=== PATIENT | male | born 1980 | race Caucasian/White ===

== ENCOUNTER 2020-05-16 18:42 | Emergency (ER) | payer OTHER, SELFPAY ==
[2020-05-16 19:21] VITALS: BP 143/94; PULSE 100; RESP 16; TEMP 37.1; O2SAT 96; BMI 37.3
--- NOTE | 2020-05-16 19:56 | ED_ITS ---
HPI - Eye Problem General Chief complaint: Eye Problems Stated complaint: eye pain Time Seen by Provider: 05/16/20 19:23 Source: patient Mode of arrival: ambulatory Limitations: no limitations History of Present Illness HPI Narrative: 39yoM c PMHx of HTN, DM and HLD presenting to the ED c c/o b/l graudual eye throbbing pain sensation and redness to b/l eyes that started on initially with the right eye now is extending to the left eye. Reports his vision seems to be the same. Denies any trauma. Denies any other symptoms complaints or concerns at this time. Related Data Previous Rx's Medication Instructions Recorded timolol 1 drp OPHTHALMIC (EYE) BID 30 Days 05/16/20 #5 ml Allergies Allergy/AdvReac Type Severity Reaction Status Date / Time acetaminophen [ACETAMINOPHEN] Allergy Unknown ITCHING Verified 05/16/20 19:21 quetiapine [From Seroquel] AdvReac Nightmare Verified 05/16/20 19:20 Review of Systems Review of Systems: Constitutional : No Fever, No Chills ENT/Mouth : No Ear Pain, No Nasal Congestion, No sore throat Eyes: + Eye Pain, + Redness, No Foreign Body, No Discharge, No Vision Changes, No Swelling Cardiovascular : No Chest Pain, No SOB Respiratory : No Cough, No Sputum, No Wheezing, No Smoke Exposure, No Dyspnea Musculoskeletal : No joint pain, No Myalgias, No Joint Swelling Skin : No Skin Lesions, No rash Neuro : No Weakness, No Numbness, No Paresthesias, No Loss of Consciousness, No Dizziness, No Headache Psych : No Anxiety/Panic, No Depression, No SI/HI/AH/VH, No Social Issues, Heme/Lymph: No Lymphadenopathy Yes all other systems are reviewed and are negative PENDING SALE TO [facility] Past Medical History Attestation statement: The following information was validated with the patient. Medical History Diabetes High cholesterol HTN (hypertension) Surgical History History of nasal surgery Hx of appendectomy Social History Social History Smoking Status: Former smoker Use of substances other than those prescribed or required for medical reasons: No Advance Directives: No Physical Exam Vital Signs: Vital Signs: Vital Signs Temp Pulse Resp BP Pulse Ox 05/16/20 19:21 98.7 F 100 16 143/94 H 96 Body Mass Index 37.3 vital signs have been reviewed as normal and appeared to be correct. Blood pressure normal. Heart rate normal. Respiration rate normal. Temperature normal. Oxygen saturation normal. Appearance: Alert. Oriented X3. No acute distress. Head: Normal external exam. Normocephalic. Atraumatic. No Marr signs noted. No raccoon eyes noted Eyes: PERRLA. EOMI. Subconjunctival hemorrhage noted to right conjunctiva. Cornea is normal. Funduscopic exam within normal limits. Sclera normal. Eyelids normal. No papilledema noted. Anterior chamber normal. No photophobia noted. Pressure to right eye is 28. Pressure to left eye is 21. Visual acuity to right eye 20/30. Visual acuity to left eye 20/25. ENT: EAC normal. TM's Normal. Pharynx normal. Uvula midline. Moist mucous membranes. Neck: Normal inspection. Neck supple. FROM. No adenopathy. Thyroid Normal. No meningeal signs. No neck mass noted. CVS: Normal heart rate and rhythm. Heart sound normal. No murmurs noted. Pulses normal throughout. Respiratory: No respiratory distress. Painless inspiration. Breath sounds normal. Back: Full range of motion noted. Skin: Skin warm and dry. Normal skin color. Normal skin turgor. No rashes/lesions/lacerations noted. Extremities: No lower extremity edema. Extremities exhibit normal range of motion. Extremities nontender. Neuro: Oriented X 3. No motor deficit. No sensory deficit. Reflexes normal. Course Course Course Narrative: 39yoM c PMHx of HTN, DM and HLD presenting to the ED c c/o b/l graudual eye throbbing pain sensation and redness to b/l eyes that started on initially with the right eye now is extending to the left eye. Reports his vision seems to be the same. Denies any trauma. Denies any other symptoms complaints or concerns at this time. - on exam visual acuity to right eye is 20/30. Left eye visual acuity 20/25. Pressure to Right eye 28. Pressure to left eye 21. Funduscopic exam within normal limits. - will DC home on timolol for open angle glaucoma and referral to Dr. Reynoso within the next 24 hours to follow-up instructions to return if any new or worsening symptoms. Patient understands agrees with this plan. Discharge Plan Discharge Clinical Impression: Subconjunctival hemorrhage Qualifiers: Laterality: right Qualified Code(s): H11.31 - Conjunctival hemorrhage, right eye Glaucoma Qualifiers: Glaucoma type: open-angle Open angle glaucoma type: unspecified type Patient Disposition: Home, Self-Care Instructions: Subconjunctival Hemorrhage (ED), Glaucoma (ED) Prescriptions: New timolol 0.25 % drops 1 drp ophthalmic (eye) BID 30 Days Qty: 5 RF: 0 Referrals: Ritesh Reynoso [Physician] - 1 day (Call tomorrow to make an appointment as soon as possible) Stand Alone Forms: Work/School Release Print Language: Pashto
== END 2020-05-16 20:25 | disposition home or self-care (01) ==
PROVIDERS: Emergency Provider Internal Medicine; PCP Internal Medicine
DX: H11.31 Conjunctival hemorrhage, right eye (principal); I10 Essential (primary) hypertension; E11.9 Type 2 diabetes mellitus without complications; Z87.891 Personal history of nicotine dependence
CPT/HCPCS: 99283

== ENCOUNTER 2024-12-17 22:23 | Emergency (ER) | payer OTHER, SELFPAY ==
--- NOTE | ~2024-12-17 | XR_ITS ---
CLINICAL HISTORY: injury Exam: AP, lateral, and mortise views of the right ankle. Comparison: None. Findings: Bony alignment is anatomic. No fracture. No joint effusion. Ankle mortise is intact. Impression: No fracture. This document has been electronically signed by: Doyle Desouza MD on 12/17/2024 23:22:30
[2024-12-17 22:30] VITALS: BP 151/88; PULSE 93; RESP 20; TEMP 36.3; O2SAT 98; BMI 37.6
--- NOTE | 2024-12-18 02:22 | ED_ITS ---
HPI - Extremity Injury (Lower) General Chief Complaint: Extremity Injury, Lower Stated Complaint: R lower leg injury Time Seen by Provider: 12/18/24 01:58 Source: patient Mode of arrival: ambulatory Limitations: no limitations History of Present Illness ED Provider: Dr. Agnieszka Tavarez HPI Narrative: Patient comes in the emergency room complaining of pain in the right jeffrey. Patient states that earlier today he was loading stuff into his truck, kicked an item and now he has a bruise in addition. Patient denies blood thinners, patient denies spraining his ankle. Patient able to bear weight. Patient states that it is throbbing. Patient did not take any medication prior to arrival. Related Data Previous Rx's ?Medication ?Instructions ?Recorded timolol 0.25 % eye drops 1 drp ophthalmic (eye) BID 05/16/20 glaucoma 30 days #5 mL ibuprofen 600 mg tablet 600 mg PO Q8H PRN fever or pain 12/18/24 #20 tabs Allergies Allergy/AdvReac Type Severity Reaction Status Date / Time acetaminophen [ACETAMINOPHEN] Allergy Unknown ITCHING Verified 12/17/24 22:32 quetiapine [From Seroquel] AdvReac Nightmare Verified 12/17/24 22:32 Review of Systems Review of Systems: Constitutional : No Weight loss, No Fever, No Chills, No Night Sweats, No Fatigue, No Malaise ENT/Mouth : No Hearing loss, No Ear Pain, No Nasal Congestion, No Sinus Pain, No Hoarseness, No sore throat, No Rhinorrhea, No Swallowing Difficulty Eyes: No Eye Pain, No Swelling, No Redness, No Foreign Body, No Discharge, No Vision Changes Cardiovascular : No Chest Pain, No SOB, No Dyspnea on Exertion, No Orthopnea, No Edema, No Palpitations Respiratory : No Cough, No Sputum, No Wheezing, No Smoke Exposure, No Dyspnea Gastrointestinal : No Nausea, No Vomiting, No Diarrhea, No Constipation, No abdominal Pain, No Hematochezia, No Melena Genitourinary : no irregular bleeding, No Dysuria, No Urinary Frequency, No Hematuria, No Urinary Incontinence, No Urgency, No Flank Pain, No Urinary Flow Changes, No Hesitancy Musculoskeletal : Ecchymosis to the right jeffrey, No joint pain, No Myalgias, No Joint Swelling Skin : No Skin Lesions, No rash Neuro : No Weakness, No Numbness, No Paresthesias, No Loss of Consciousness, No Dizziness, No Headache Psych : No Anxiety/Panic, No Depression, No SI/HI/AH/VH, No Social Issues, Heme/Lymph: No Bruising, No Bleeding,No Lymphadenopathy Endocrine : No Polyuria, No Polydipsia, No Temperature Intolerance [facility] Past Medical History Medical History High cholesterol HTN (hypertension) Diabetes Surgical History History of nasal surgery Hx of appendectomy Social History Social History Advance Directives: No Advance Directives Information Provided: Yes Do you have a plan to hurt others: No Plan Physical Exam Vital Signs: Vital Signs: Last Vital Signs Temp 97.4 F 12/17/24 22:30 Pulse 93 12/17/24 22:30 Resp 20 12/17/24 22:30 BP 151/88 H 12/17/24 22:30 Pulse Ox 98 12/17/24 22:30 O2 Del Method Room Air 12/17/24 22:30 BMI result Body Mass Index 37.6 Const: Other: Appearance: Alert. Oriented X3. No acute distress. Eyes: Pupils equal, round and reactive to light. ENT: Pharynx normal. Neck: Normal inspection. Neck supple. No lymph nodes noted. No crepitus CVS: Normal heart rate and rhythm. Pulses normal. Normal S1 and S2 Respiratory: No respiratory distress. Breath sounds normal. No Wheezing. No rales Abdomen: Soft and nontender. No rigidity. No distention. Skin: Skin warm and dry. Normal skin color. Normal skin turgor. Extremities: No lower extremity edema. No Lacerations. No Rash, ecchymosis on the lateral aspect of the jeffrey, right leg Neuro: Oriented X 3. No motor deficit. No sensory deficit. Moving all extremities. No slurred speech. CN 2 through 12 grossly intact Psych: calm, cooperative, normal affect Medical Decision Making Medical Decision Making MDM Narrative: Patient's x-rays negative for fracture. Patient is pacing and ambulating around the emergency room with steady gait. Patient does have a small contusion. Patient has no swelling in the calf, no calf pain. Patient was given a dose of p.o. ibuprofen Independent Interpretation I performed an independent interpretation of an: Plain X-Ray Radiology Impression Discussion of test interpretation with radiology: I have reviewed the radiologist's reading. Radiologist Impression: Bony alignment is anatomic. No fracture. No joint effusion. Ankle mortise is intact. Impression: No fracture. Discharge Plan Discharge Clinical Impression: Contusion of leg Patient Disposition: Home, Self-Care Instructions: Contusion in Adults (ED) Additional Instructions: Please follow-up with your primary care physician tomorrow. If you have any worsening or new symptoms, please return to the emergency room or call 911 Prescriptions: New ibuprofen 600 mg tablet 600 mg PO Q8H PRN (Reason: fever or pain) Qty: 20 0RF No Action timolol 0.25 % drops 1 drp ophthalmic (eye) BID 30 Days Qty: 5 0RF Stand Alone Forms: Work/School Release Print Language: German
[2024-12-18] MEDS: Ibuprofen 600 MG TABLET PO (02:31)
[2024-12-18 02:34] VITALS: BP 151/88; PULSE 93; RESP 20; TEMP 36.3; O2SAT 98
== END 2024-12-18 02:40 | disposition home or self-care (01) ==
PROVIDERS: Emergency Provider Emergency Medicine; PCP Internal Medicine
DX: S80.11XA Contusion of right lower leg, initial encounter (principal); X58.XXXA Exposure to other specified factors, initial encounter; Y93.9 Activity, unspecified; Y92.9 Unspecified place or not applicable; Y99.8 Other external cause status
CPT/HCPCS: 73610; 99283; 99284

== ENCOUNTER → 2024-12-17 22:35 | Outpatient (BNV) | payer OTHER, SELFPAY | PROVIDERS: PCP Internal Medicine; Visit Provider Radiology Diagnostic Radiology | DX: S80.11XA Contusion of right lower leg, initial encounter (principal) | CPT/HCPCS: 73610 ==